=== PATIENT | male | born 1970 | race Caucasian/White ===

== ENCOUNTER 2020-07-30 11:49 | Emergency (ER) | payer OTHER, SELFPAY ==
[2020-07-30 11:56] VITALS: BP 187/89; PULSE 78; RESP 20; TEMP 36.5; O2SAT 100
--- NOTE | 2020-07-30 12:13 | ED.URI ---
HPI - URI/Sore Throat General Chief Complaint: Upper Respiratory Infection Stated Complaint: stuffy nose/drainage/sore throat Time Seen by Provider: 07/30/20 12:02 Source: patient and RN notes reviewed Mode of arrival: ambulatory Limitations: no limitations History of Present Illness HPI Narrative: 49 year old male who presents to [facility] with complaints of 2 week duration of sinus congestion with pressure to his face especially to his right maxillary region with pressure also to his right ear, and sore throat. Patient states that his son tested positive to Covid and he was also tested last week with his results being negative. Patient states that he also has some coughing with expectoration of greenish mucous. Patient denies any fevers, chills or sweats, denies any shortness of breath, chest pressure or any palpitations. He states that he has been taking OTC sinus medication with no relief of his symptoms. MD elicited complaint: cough, sore throat, rhinorrhea, nasal congestion and sinus pain Pertinent past history: sinusitis and other (tobacco abuse) Onset (ago): week(s) (2) Consistency: progressively worsening Severity: moderate Pain scale (0-10): 5 Description of mucous: clear and green Able to tolerate fluids by mouth: Yes Exacerbating factors: leaning forward Relieving factors: nothing Associated symptoms: rhinorrhea, nasal congestion, sore throat, cough, ear pain (right ear pressure) and other (sinus pressure) Treatments prior to arrival: other (sinus medication) Related Data Allergies Allergy/AdvReac Type Severity Reaction Status Date / Time propoxyphene Allergy Mild Other Verified 07/30/20 12:02 Review of Systems Review of Systems: Narrative: CONSTITUTIONAL: Denies fever, chills, or sweats. EYES: Denies visual changes, redness, or discharge. ENT: positive rhinorrhea,sinus congestion, sore throat, right ear pressure CARDIOVASCULAR: Denies chest pain, palpitations, or edema. RESPIRATORY: Occasional cough denies dyspnea. GASTROINTESTINAL: Denies abdominal pain, nausea, vomiting, or diarrhea. GENITOURINARY: Denies dysuria or hematuria. SKIN: Denies rash or itching. MUSCULOSKELETAL: Denies back pain, joint pain, or myalgia. NEUROLOGIC: Denies headache, numbness, or weakness. PSYCHIATRIC: Denies anxiety or depression. All systems reviewed & are unremarkable except as noted in HPI and below PMFSH Past Medical History Medical History (Updated 07/31/20 @ 19:08 by Lexy Carrera NP) C. difficile enteritis Sinusitis Surgical History Surgical History (Updated 07/30/20 @ 18:06 by Lexy Carrera NP) History of arthroscopy of left shoulder History of left nephrectomy History of right knee surgery History of tonsillectomy Hx of cholecystectomy Family History Family History (Updated 07/31/20 @ 19:10 by Lexy Carrera NP) Mother Cancer Social History Social History (Updated 07/31/20 @ 19:10 by Lexy Carrera NP) Smoking packs per day: 1 Smoking cigarettes per day: 20.0 Smoking status: Current every day smoker Alcohol intake: current Alcohol use details: social Substance use: never Living arrangements: with family Gender identity (if verbalized by the patient): Male Comments At time of signature, agree with nursing past medical, surgical, social and family history. There is no relevant family history pertinent to the presenting complaint Exam Narrative: Exam Narrative: GENERAL: Well-appearing, well-nourished, and in no acute distress. HEAD: Normocephalic, atraumatic. EYES: PERRLA and EOMI. ENT: Nares red and turbinates swollen, clear to greenish rhinorrhea no epistaxis, facial sinus pressure right greater than left. Mucous membranes moist.Right TM dull light reflex with no redness to TM or canal, Left Rm normal with good light reflex. throat red with post nasal drainage noted, no lesions noted previous tonsillectomy. NECK: Supple.no lymphadenopathy CHEST: Clear to auscultation.
[2020-07-30 12:21] VITALS: BP 162/88
== END 2020-07-30 12:25 | disposition home or self-care (01) ==
PROVIDERS: Emergency Provider Registered Nurse
DX: J01.90 Acute sinusitis, unspecified (principal); F17.210 Nicotine dependence, cigarettes, uncomplicated; Z90.5 Acquired absence of kidney; Z86.19 Personal history of other infectious and parasitic diseases
CPT/HCPCS: 99203; G0463

== ENCOUNTER 2021-01-17 16:02 | Emergency (ER) | payer OTHER, SELFPAY ==
[2021-01-17 16:11] VITALS: BP 144/86; PULSE 89; RESP 16; TEMP 37.4; O2SAT 100
--- NOTE | 2021-01-17 16:32 | ED.GENADULT ---
HPI - General Adult General Chief complaint: Weakness Stated complaint: Fatigue Time Seen by Provider: 01/17/21 16:32 Source: patient and RN notes reviewed Mode of arrival: ambulatory Limitations: no limitations History of Present Illness HPI narrative: 50-year-old male presents with complaints of being fatigue and decrease appetite for the past 2 days. Aston reports increasing fatigue after having a day of nausea, vomiting, and decrease po intake. Aston reports working long hours at [employer] due t short staff. No treatment. Denies URI symptoms. Denies ill exposures. Denies abdominal pain, constipation, and diarrhea. Tolerating p.o. intake well since the day of nausea and vomiting. Denies sore throat. Denies trauma to head, syncopal episodes, altered vision, altered speech, confusion, or seizure activity. Denies headache, numbness or tingling in extremities. Denies chest pain or dyspnea. Denies sweats, fever, or chills. Remains active. The patient reports he have not been diagnosed with COVID-19. The patient reports he is not waiting for the results of a COVID-19 lab test. The patient reports he do not have a new or worsening cough. The patient reports he do not have any rhinorrhea, congestion, loss of taste or smell. Denies recent traveling. Denies concerns for COVID-19 or exposures been home with limited outdoor exposure except for essential household needs, work, and return home. At this time, patient is not suspected of having COVID-19. Some parts of this dictation were generated by voice recognition software and may contain typographical and/or grammatical inaccuracies. Related Data Allergies Allergy/AdvReac Type Severity Reaction Status Date / Time propoxyphene Allergy Mild Other Verified 01/17/21 16:10 Review of Systems Review of Systems: Narrative: CONSTITUTIONAL: Denies fever, chills, sweats. Complains of fatigue. EYES: Denies visual changes, redness, discharge. ENT: Denies rhinorrhea, congestion, sore throat, otalgia. CARDIOVASCULAR: Denies chest pain, palpitations, edema. RESPIRATORY: Denies dyspnea, wheezing, cough. GASTROINTESTINAL: Denies abdominal pain, diarrhea. Complains of nausea, vomiting-Resolved. GENITOURINARY: Denies dysuria, hematuria, abnormal discharge. SKIN: Denies lesions, itching, drainage. MUSCULOSKELETAL: Denies acute back pain, joint pain, or myalgia. NEUROLOGIC: Denies numbness or focal weakness. PSYCHIATRIC: Denies anxiety or depression. All systems reviewed & are unremarkable except as noted in HPI and below. [facility] Past Medical History Medical History C. difficile enteritis Sinusitis Surgical History Surgical History History of arthroscopy of left shoulder History of left nephrectomy History of right knee surgery History of tonsillectomy Hx of cholecystectomy Family History Family History (Updated 01/24/21 @ 23:47 by CHERELLE Shin) Mother , Lymphoma Cancer Father Hypertension Social History Social History (Updated 01/24/21 @ 23:49 by CHERELLE Shin) Smoking packs per day: 1 Smoking cigarettes per day: 20.0 Years smoked: 30 Smoking pack-years: 30.00 Smoking status: Current every day smoker Tobacco type: cigarettes Second hand tobacco smoke exposure: No Alcohol intake: current Substance use: never Substance use type: does not use Living arrangements: with family Occupation/Education: occupation Gender identity (if verbalized by the patient): Male Comments At time of signature, agree with nurse past medical, surgical, social, and family history. There is no relevant family history pertinent to the presenting complaint. Exam Narrative: Exam Narrative: GENERAL: This is a well-nourished, well-developed patient, in no apparent distress. Talks in full sentences and ambulates with steady
== END 2021-01-17 17:27 | disposition home or self-care (01) ==
PROVIDERS: Emergency Provider Nurse Practitioner Family
DX: K52.9 Noninfective gastroenteritis and colitis, unspecified (principal); R53.83 Other fatigue; F17.210 Nicotine dependence, cigarettes, uncomplicated; Z86.19 Personal history of other infectious and parasitic diseases; Z90.5 Acquired absence of kidney
CPT/HCPCS: 81003; 99213; G0463

== ENCOUNTER 2022-05-02 19:08 | Emergency (ER) | payer OTHER, SELFPAY ==
[2022-05-02 19:15] VITALS: BP 133/81; PULSE 89; RESP 18; TEMP 36.7; O2SAT 100
--- NOTE | 2022-05-02 19:24 | ED.BACK ---
HPI - Back Pain/Injury General Chief Complaint: Back Pain/Injury Stated Complaint: Low Back Pain Time Seen by Provider: 05/02/22 19:24 Source: patient and RN notes reviewed Mode of arrival: ambulatory Limitations: no limitations History of Present Illness HPI Narrative: 51-year-old male presents to the [facility] with complaints of left lower back pain for a couple of days. Has been taking ibuprofen with minimal relief. Patient denies any abdominal pain or chest pain. No saddle anesthesia. No numbness or tingling in extremities. No saddle anesthesia. Walks with a normal gait. Related Data Allergies Allergy/AdvReac Type Severity Reaction Status Date / Time propoxyphene Allergy Mild Other Verified 05/02/22 19:28 Review of Systems Review of Systems: All systems reviewed & are unremarkable except as noted in HPI and below Constitutional: Constitutional: Reports no additional constitutional complaints, Denies chills and Denies fever(s) Eyes: Eyes: Reports no additional eye complaints ENT: Reports system reviewed and no additional complaints, except as documented Cardiovascular: Cardiovascular: Reports no additional cardiovascular complaints Respiratory: Respiratory: Reports no additional respiratory complaints Gastrointestinal: Gastrointestinal: Reports no additional gastrointestinal complaints Musculoskeletal: Musculoskeletal: Reports as per HPI and Reports back pain (Left lower) Integumentary/Breasts: Skin/Breast: Reports system reviewed and no additional complaints, except as docu Neurologic: Reports system reviewed and no additional complaints, except as documented Psychiatric: Psychiatric: Reports no additional psychiatric complaints Allergic/Immunologic: Allergic/Immunologic: Reports no additional allergic/immunologic complaints [facility] Past Medical History Medical History C. difficile enteritis Sinusitis Surgical History Surgical History History of arthroscopy of left shoulder History of left nephrectomy History of right knee surgery History of tonsillectomy Hx of cholecystectomy Family History Family History Mother , Lymphoma Cancer Father Hypertension Social History Social History Smoking packs per day: 1 Smoking cigarettes per day: 20.0 Years smoked: 30 Smoking pack-years: 30.00 Smoking status: Current every day smoker Tobacco type: cigarettes Second hand tobacco smoke exposure: No Alcohol intake: current Alcohol use details: social Substance use: never Substance use type: does not use Gender identity (if verbalized by the patient): Male Comments At the time of my signature, I reviewed and agree with the nursing past medical, surgical, social, and family history. There is no relevant family history pertinent to the patient complaint. Exam Const: General: healthy appearing, no acute distress and alert Nutritional Appearance: well nourished Orientation/consciousness: patient oriented x3 Limitations: no limitations HENMT: Head: normal to inspection Ears: external ears normal Eyes: General: appearance normal, both eyes and all related structures Pupils: Equal, round and reactive pupils present Neck: Neck: normal visual inspection, no lymphadenopathy and no meningeal signs Chest: Chest palpation & inspection: normal inspection of the chest Resp: Effort & Inspection: normal respiratory effort and no use of accessory muscles Auscultation: clear to auscultation bilaterally, no crackles, no rales, no rhonchi and no wheezes Cardio: Rate: regular rate Rhythm: regular rhythm GI: GI Palp: Yes Soft to palpation and No Tenderness to palpation present (GI) Back/Spine/Pelvis: Back: no CVA tenderness, No erythema and back tenderness (Lef
[2022-05-02] MEDS: KETOROLAC (*BKC) 60 MG/2 ML VIAL IM (19:35)
== END 2022-05-02 19:55 | disposition home or self-care (01) ==
PROVIDERS: Emergency Provider Nurse Practitioner
DX: S39.012A Strain of muscle, fascia and tendon of lower back, initial encounter (principal); X58.XXXA Exposure to other specified factors, initial encounter; Z86.19 Personal history of other infectious and parasitic diseases; Z90.5 Acquired absence of kidney; F17.210 Nicotine dependence, cigarettes, uncomplicated
CPT/HCPCS: 96372; 99213; G0463; J1885

== ENCOUNTER 2022-07-01 09:00 | Outpatient (CLI) | payer OTHER, SELFPAY ==
[2022-07-01 19:49] LABS: Basophils Absolute Auto 0.1 K/mm3 (0.0-0.1); Basophils Percent Auto 0.4 % (0.2-1.2); Eosinophils Absolute Auto 0.2 K/mm3 (0-0.3); Eosinophils Percent Auto 1.9 % (0-4.4); Hematocrit 46.3 % (42.0-52.0); Immature Granulocyte Absolute 0.03 K/mm3 (0.00-0.031); Immature Granulocyte Percent A 0.2 % (0-0.5); Lymphocytes Absolute Auto 2.47 K/mm3 (0.9-3.2); Lymphocytes Percent Auto 19.7 % (18.3-44.2); Mean Corpuscular HGB Conc 34.6 g/dl (32-36); Mean Corpuscular Hemoglobin 34.2 pg (26-34); Mean Corpuscular Volume 98.9 fl (80-100); Mean Platelet Volume 9.8 fl (7.4-10.4); Monocytes Absolute Auto 0.4 K/mm3 (0.1-0.6); Monocytes Percent Auto 3.3 % (2.6-8.5); Neutrophils Absolute Auto 9.3 K/mm3 (1.3-6.7); Neutrophils Percent Auto 74.5 % (45.5-73.1); Platelet Count Result 183 k/mm3 (150-375); Red Blood Count 4.68 M/mm3 (4.6-6.20); Red Cell Distribution Width 12.3 % (11.5-14.5); White Blood Count 12.5 K/mm3 (4.5-10.0)
[2022-07-01 19:58] LABS: Alanine Aminotransferase 36 U/L (6-50); Albumin Level 4.6 g/dL (3.5-5.1); Alkaline Phosphatase 70 U/L (38-126); Anion Gap 11 mmol/L (8-16); Aspartate Amino Transferase 49 U/L (17-59); Bilirubin,Total 0.3 mg/dL (0.2-1.3); Blood Urea Nitrogen 14 mg/dL (9-20); Calcium 9.4 mg/dL (8.4-10.2); Carbon Dioxide 31 mmol/L (22-30); Chloride 100 mmol/L (98-107); Cholesterol 185 mg/dL (0-200); Estimated Glomerular Filt Rate > 60; Glucose 101 mg/dL (65-110); HDL Direct 38 mg/dL; Potassium 4.5 mmol/L (3.4-5.0); Sodium 142 mmol/L (137-145); Triglycerides 214 mg/dL (<150)
[2022-07-01 20:09] LABS: LDL Cholesterol Direct 111 mg/dL
== END 2022-07-01 09:01 | disposition home or self-care (01) ==
LOC: ANHBWCLAB 09:02
PROVIDERS: PCP Family Medicine; Visit Provider Family Medicine
DX: Z00.00 Encounter for general adult medical examination without abnormal findings (principal)
CPT/HCPCS: 36415; 80053; 80061; 85025

== ENCOUNTER 2023-04-01 16:22 | Outpatient (CLI) | payer OTHER, SELFPAY ==
--- NOTE | ~2023-04-01 | XR_ITS ---
XR thoracic spine 2V DATE: 04/01/2023 16:36 INDICATION: Back pain, sciatica TECHNIQUE: AP, lateral, swimmer views COMPARISON: None FINDINGS: There is mild anterolisthesis of C4-5 and severe degenerative disc disease at C5-C6, modera tely prominent degenerative disease at C6-7. Slight thoracic levoscoliosis. No fracture or dislocation of the thoracic spine. The thoracic pedicles are intact. No paraspinal sof t tissue thickening. There is minimal degenerative spurring of the thoracic spine. IMPRESSION: Minimal degenerative spurring of the thoracic spine Slight thoracic levoscoliosis. Reviewed, dictated and finalized at location B.
--- NOTE | ~2023-04-01 | XR_ITS ---
XR lumbar spine 2-3V DATE: 04/01/2023 16:36 INDICATION: Mid and low back pain, sciatica TECHNIQUE: AP, lateral, coned lateral lumbosacral views COMPARISON: None FINDINGS: There is grade 2 anterolisthesis and moderately severe degenerative disease at L5-S1. Moderately severe degenerative disease and retrolisthesis is noted at L3-4 and L4-5. Moderate degenerative disc disease at L2-3. No fracture or bone destruction is evident. The included lower thoracic and lumbar pedicles are intac t. The sacroiliac joints are intact. Surgical clips, right upper quadrant, consistent with cholecystectomy. Pubic sutures and clips overli e the left abdomen. Multiple surgical clips overlie the left pelvis. IMPRESSION: Grade 2 anterolisthesis at L5-S1 Multilevel degenerative disc disease, most pronounced at L3-4 through L5-S1, with mild retrolisthesis at L3-4 and L4-5 Reviewed, dictated and finalized at location B. IMPRESSION: Grade 2 anterolisthesis at L5-S1 Multilevel degenerative disc disease, most pronounced at L3-4 through L5-S1, wi th mild retrolisthesis at L3-4 and L4-5
== END 2023-04-01 16:23 | disposition home or self-care (01) ==
LOC: ANHBWCIMG 16:23
PROVIDERS: PCP Family Medicine; Visit Provider Nurse Practitioner Adult Health
DX: M54.30 Sciatica, unspecified side (principal); M51.37 Other intervertebral disc degeneration, lumbosacral region; M41.9 Scoliosis, unspecified
CPT/HCPCS: 72070; 72100

== ENCOUNTER 2023-04-15 08:02 | Emergency (ER) | payer OTHER, SELFPAY ==
--- NOTE | 2023-04-15 08:06 | ED.BACK ---
HPI - Back Pain/Injury General Chief Complaint: Back Pain/Injury Stated Complaint: Lower Back/Left Leg Pain Time Seen by Provider: 04/15/23 08:16 Source: patient and RN notes reviewed Mode of arrival: ambulatory Limitations: no limitations History of Present Illness HPI Narrative: 52 year old male presents with flare up of low back pain. He was seen my his primary care doctor about 2 weeks ago and had spine x-rays that show degenerative disc disease. He is waiting on an order for an MRI. He reports he took Medrol Dosepak which helped, he has a prescription for cyclobenzaprine which he says does not help. He reports this morning he stepped down from his truck at work and stepped wrong and had sudden return of pain is left low back going down to his left knee. He reports he can find a position of comfort while sitting and extending the leg. He reports walking and lying down makes the pain worse. He denies loss of bowel or bladder function, perianal anesthesia, fever, abdominal pain. He has not taken any medication for his symptoms today. MD elicited complaint: back pain Related Data Allergies Allergy/AdvReac Type Severity Reaction Status Date / Time propoxyphene Allergy Mild Other Verified 04/15/23 08:20 Review of Systems Review of Systems: CONSTITUTIONAL: Denies malaise, chills, sweats, or fever. CARDIOVASCULAR: Denies chest pain, palpitations, or edema. RESPIRATORY: Denies cough or dyspnea. GASTROINTESTINAL: Denies abdominal pain, nausea, vomiting, diarrhea, loss of bowel function GENITOURINARY: Denies dysuria, hematuria, frequency, loss of bladder function. SKIN: Denies rash or itching. MUSCULOSKELETAL: Reports low back pain radiating to the left leg NEUROLOGIC: Denies numbness, weakness, or headache. All systems reviewed & are unremarkable except as noted in HPI and below PMFSH Past Medical History Medical History (Updated 04/15/23 @ 08:27 by Belen Hyman NP) C. difficile enteritis Sinusitis Surgical History Surgical History History of arthroscopy of left shoulder History of left nephrectomy History of right knee surgery History of tonsillectomy Hx of cholecystectomy Family History Family History Mother , Lymphoma Cancer Father Hypertension Social History Social History (Updated 04/01/23 @ 16:04 by Shanon Snyder MA) Smoking packs per day: 1 Smoking cigarettes per day: 20.0 Years smoked: 30 Smoking pack-years: 30.00 Smoking status: Current every day smoker Tobacco type: cigarettes Second hand tobacco smoke exposure: No Alcohol intake: current Alcohol use details: social Substance use: never Substance use type: does not use Lack of Transportation: No Lack of Food: Never True Current Housing: I Have Housing Concerned About Future Housing: No Difficulty Paying Gas/Electric Bills: No Difficulty Paying for Meds: No Currently Unemployed: No Education: Trade/Vocational Certificate Difficulty w/ Childcare or Family Care: No Living arrangements: with family Occupation/Education: occupation Gender identity (if verbalized by the patient): Male Comments At time of signature, agree with nursing past medical, surgical, social and family history. There is no relevant family history pertinent to the presenting complaint Exam Narrative: GENERAL: Well-appearing, well-nourished, and in no acute distress. HEAD: Normocephalic, atraumatic. EYES: PERRLA and EOMI. NECK: Supple. No lymphadenopathy. CHEST: Clear to auscultation. No respiratory distress. HEART: Regular rate and rhythm. Distal pulses palpable and equal, cap refill <3 seconds ABDOMEN: Soft, nontender, nondistended, normal active bowel sounds, no palpable or pulsatile masses. No CVA tenderness MUSCULOSKELETAL: Normal range of motion and strength in all extremities; 5/5 strength
[2023-04-15 08:08] VITALS: BP 159/87; PULSE 81; RESP 18; TEMP 36.6; O2SAT 100
== END 2023-04-15 08:30 | disposition home or self-care (01) ==
PROVIDERS: Emergency Provider Nurse Practitioner; PCP Family Medicine
DX: M54.50 Low back pain, unspecified (principal); F17.210 Nicotine dependence, cigarettes, uncomplicated; Z90.5 Acquired absence of kidney
CPT/HCPCS: 99213; G0463

== ENCOUNTER 2023-04-24 08:41 | Outpatient (CLI) | payer OTHER, SELFPAY ==
--- NOTE | ~2023-04-24 | MR_ITS ---
EXAMINATION: MR thoracic spine wo con DATE: 04/24/2023 10:07 INDICATION: Scoliosis, unspecified. TECHNIQUE: Magnetic resonance imaging (MRI) of the thoracic spine was performed without intravenous c ontrast. COMPARISON: Thoracic spine radiographs 04/01/2023 FINDINGS: Bone alignment is normal in thoracic spine. There are Schmorl's nodes multiple levels in lo wer thoracic spine. Intervertebral disc heights are normal. At T7-T8, there is a left central protrus ion with mild central canal stenosis. There is multilevel mild facet joint osteoarthritis. On the rig ht, there is moderate facet joint osteoarthritis at T3-T4. On the right, there is mild neural foramin al stenosis at T1-T2. The spinal cord signal intensity is normal. IMPRESSION: 1. Mild thoracic spondylosis. Reviewed, dictated and finalized at location A.
--- NOTE | ~2023-04-24 | MR_ITS ---
EXAMINATION: MR lumbar spine wo con DATE: 04/24/2023 10:07 INDICATION: Lumbar spondylolisthesis. TECHNIQUE: Magnetic resonance imaging (MRI) of the lumbar spine was performed without intravenous con trast. COMPARISON: Lumbar spine radiographs 04/01/2023 FINDINGS: There is 8 degrees levocurvature of lumbar spine. There are chronic bilateral L5 pars defec ts. There is 3 mm retrolisthesis of L2 on L3, 7 mm retrolisthesis of L3 on L4, 9 mm retrolisthesis of L4 on L5, and 14 mm anterolisthesis of L5 on S1. There is 1/5 chronic height loss of L5 vertebral brayan dy posteriorly. There is mildly decreased disc height at L2-L3, severely decreased disc height at L3- L4, moderately decreased disc height at L4-L5, and severely decreased disc height at L5-S1. The dista l spinal cord signal intensity is normal. The conus medullaris is at L1-L2. The following disc levels are specifically discussed: L1-L2: There is a left central extrusion. There is mild bilateral facet joint osteoarthritis. There i s mild bilateral neural foraminal stenosis. There is mild central canal stenosis. L2-L3: The disc is bulging. There is mild bilateral facet joint osteoarthritis. There is mild bilater al neural foraminal stenosis. There is mild central canal stenosis. L3-L4: The disc is bulging with superimposed right subarticular zone extrusion. There is mild right a nd moderate left facet joint osteoarthritis. There is moderate right and mild left neural foraminal s tenosis. There is mild central canal stenosis. There is moderate stenosis of right lateral recess. L4-L5: The disc is bulging and has an annular fissure. There is moderate bilateral facet joint osteoa rthritis. There is moderate bilateral neural foraminal stenosis. There is mild central canal stenosis . L5-S1: The disc is bulging. There is mild bilateral facet joint osteoarthritis. There is moderate ry ateral neural foraminal stenosis. There is no central canal stenosis. IMPRESSION: 1. Severe lumbar spondylosis. 2. Chronic bilateral L5 pars defects with grade 2 anterolisthesis of L5 on S1. Reviewed, dictated and finalized at location A.
== END 2023-04-24 08:42 ==
LOC: GOSHIMG 08:43
PROVIDERS: PCP Family Medicine; Visit Provider Nurse Practitioner Adult Health
DX: M43.16 Spondylolisthesis, lumbar region (principal); M41.9 Scoliosis, unspecified; M47.894 Other spondylosis, thoracic region; M47.896 Other spondylosis, lumbar region
CPT/HCPCS: 72146; 72148

== ENCOUNTER 2023-06-15 09:06 | Outpatient (CLI) | payer OTHER, SELFPAY ==
--- NOTE | ~2023-06-15 | XR_ITS ---
EXAMINATION: XR lumbar spine min 4V DATE: 06/15/2023 09:28 INDICATION: Spondylolisthesis, site unspecified. TECHNIQUE: 4 views of lumbar spine including flexion and extension views were obtained. COMPARISON: Lumbar spine radiographs 04/01/2023, MRI 04/24/2023 FINDINGS: There are chronic bilateral L5 pars defects. There is 12 mm anterolisthesis of L5 on S1, 8 mm retrolisthesis of L4 on L5, and 5 mm anterolisthesis of L3 on L4. There is no abnormal motion with flexion or extension. There is mild chronic height loss of L5 vertebral body posteriorly. There is m ildly decreased disc height at L2-L3, severely decreased disc height at L3-L4, moderately decreased d isc height at L4-L5, and severely decreased disc height at L5-S1. There is multilevel mild to moderat e facet joint osteoarthritis. There are surgical clips in the abdomen. IMPRESSION: 1. Severe lumbar spondylosis. 2. Chronic bilateral L5 pars defects with grade 2 anterolisthesis of L5 on S1. Reviewed, dictated and finalized at location A.
== END 2023-06-15 09:07 | disposition home or self-care (01) ==
PROVIDERS: PCP Nurse Practitioner Adult Health; Visit Provider Neurological Surgery
DX: M43.06 Spondylolysis, lumbar region (principal); M53.86 Other specified dorsopathies, lumbar region
CPT/HCPCS: 72110

== ENCOUNTER 2025-03-17 08:05 | Emergency (ER) | payer OTHER, SELFPAY ==
--- OUTSIDE RECORDS SUMMARY | 2025-03-17 08:07 | XMS_ITS | Clinical Summary ---
Author Organization [facility] Address [facility] [place] [address] Care Team Providers Care Accounts Specialist Name Role Phone Unavailable Primary Care Provider Unavailabl e Allergies Active Allergy Reactions Criticality Noted Date Comments Propoxyphene Itching Medications methylPREDNISolo ne, BETTY, 4 MG tabletIndication s:Fever, unspecified fever cause,Sore throat,Elevated blood pressure reading,Upper respiratory infection, viral 6 TABLETS ON DAY ONE, 5 TABLETS DAY TWO, 4 TABLETS DAY THREE, 3 TABLETS DAY FOUR, 2 TABLETS DAY FIVE, AND 1 TABLET DAY SIX 1 each 12/07/2019 Active ipratropium 0.06 % nasal sprayIndications :Fever, unspecified fever cause,Sore throat,Elevated blood pressure reading,Upper respiratory infection, viral 2 sprays by Nasal route 4 (four) times daily. 15 mL 3 12/07/2019 Active Active Problems Problem Noted Date Diagnosed Date Status post laparoscopic cholecystectomy 019 Hematuria 08/04/2016 Calculus in diverticulum of bladder 04/28/2016 Overview (05/12/2019): Overview: Description: 09/16/2016 cystolitholapaxy of stone burden 2 cm, bilateral retrograde pyelography, left ureteroscopy, left ureteral foreign body extraction, and excision of ureterocele. Enlarged prostate 04/28/2016 Flank pain 04/28/2016 Resolved Problems Problem Noted Date Diagnosed Date Resolved Date Cholelithiases 05/13/2019 05/20/2019 Cholelithiasis 05/12/2019 05/20/2019 Calculus of gallbladder with biliary obstruction but without cholecystitis 05/11/2019 Overview (05/12/2019): Overview: Added automatically from request for surgery [id number] Family History Medical History Relation Comments Diabetes Maternal Grandfather Cancer Mother lymphoma Relation Status Comments Maternal Grandfather Mother Social History Tobacco Use Types Packs/Day Years Used Date Smoking Tobacco: Every Day Cigarettes Smokeless Tobacco: Never Tobacco Cessation:Counseling Given: Yes Alcohol Use Standard Drinks/Week Comments No 0 (1 standard drink = 0.6 oz pur e alcohol) AUDIT-C Answer Date Recorded Frequency of Alcohol Consumption Never 05/12/2019 Average Number of Drinks Not on file 019 Frequency of Binge Drinking Not on file 01/2019 Sex and Gender Information Value Date Recorded Sex Assigned at Not on file Legal Sex Male 10:40 PM CDT Gender Identity Not on file Sexual Orientation Not on file Last Filed Vital Signs Vital Sign Reading Time Taken Comments Blood Pressure 167/97 12/07/2019 10:40 AM CDT Pulse 86 12/07/2019 10:40 AM CDT Temperature 36.9 C (98.4 F) 12/07/2019 10:40 AM CDT Respiratory Rate 18 12/07/2019 10:40 AM CDT Oxygen Saturation 97% 12/07/2019 10:40 AM CDT Inhaled Oxygen Concentration - - Weight 95.3 kg (210 lb) 12/07/2019 10:40 AM CDT Height 190.5 cm (6' 3) 07/27/2019 4:15 PM CHANNEL MARKETING COORDINATOR Body Mass Index 26.25 07/27/2019 4:15 PM CHANNEL MARKETING COORDINATOR Plan of Treatment Health Maintenance Due Date Last Done Comments Colorectal Cancer Screening Colonoscopy (10 Years) 1972 Annual Physical 1975 Hepatitis C 1990 DTaP, Tdap and Td Vaccines ( 1 - Tdap) 1991 Hepatitis B Vaccines (1 of 3 - 19+ 3-dose series) 1991 Pneumococcal Vaccine: 50+ Ye ars (1 of 2 - PCV) 1991 Zoster Vaccines (1 of 2) 2022 COVID-19 Vaccine (2023-2 5 season) 2024 Meningococcal B Vaccine Aged Out No l onger eligible based on patient's age to complete this topic Meningococcal Vaccine Aged Out No wesly jose luis eligible based on patient's age to complete this topic RSV Immunizations Under 20 Months Aged Out No longer eligible based on patient's age to complete this topic Insurance [facility] Advance Directives * Full Code (Latest Code Status on File) Date Activated Date Inactivated Comments 05/13/2019 10:46 AM 05/14/2019 6:07 PM
--- OUTSIDE RECORDS SUMMARY | 2025-03-17 08:07 | XMS_ITS | Continuity of Care Document ---
Author Organization [facility] Address [address] [address] Phone Care Team Providers Care Correctional Treatment Specialist Name Role Phone Garcia Menchaca MD Unavailable Unavailable Advance Directives Directive Yes / No Effective Date File Name No Information Encounters Encounter Description Practice Location Reason(s) For Visit Diagnoses Date Provider Providers Copied on Encounter [facility], [address] [address], [place], [place], [id number], [place] tel:[phone] [facility] ([place]) No Information Nikolai Zelaya. [address], [id number], [place]. tel:[phone] Family History Family Member Type Diagnosis Age At Onset No Information Payers Payer name Insurance type Covered republican ID Authoriza tion(s) [facility] [id number] Social History Type Description Quantity Date Captured Comments Sex Male Smoking Status No Information Chief Complaint And Reason For Visit No Information Reason For Referral Reason For Referral No Information History Of Present Illness Encounter Date Complaint History Of Prese nt Illness No Information Functional Status Date Functional Assessmen t No Information Instructions Date Instruction Additional Infor mation No Information Assessments Type Assessment Date No Information Patient Care Teams Name Effective Dates (start - stop) Status Members No Information
--- OUTSIDE RECORDS SUMMARY | 2025-03-17 08:07 | XMS_ITS | Encounter Summary ---
Author Organization [facility] Address [address] [place] [address] Care Team Providers Care Dish Stacker Name Role Phone Letty Ennis WAISTBAND SETTER Primary Care Provider Rocio Mg WAISTBAND SETTER Primary Care Provider Marvel ailable Reason for Visit * Reason Onset Date Comments Hospital Follow Up 05/15/2019 Encounter Details Date Type Department Care Team (Late st Contact Info) Description 05/15/2019 Hospital Follow-up Call [facility] Med/Surg [address] [place] [address] Ashtyn Fletcher RN Hospital Follow Up Social History Tobacco Use Types Packs/Day Years Used Date Smoking Tobacco: Every Day Cigarettes Smokeless Tobacco: Never Alcohol Use Standard Drinks/Week Comments No 0 [...] on file Sexual Orientation Not on file documented as of this encounter Functional Status * RETIRED Are you deaf or do you have serious difficulty hearing Answer Date of Assessment Author Status No 05/14/2019 12:13 PM CDT Acti ve * RETIRED Are you blind or do you have serious difficulty seeing, even when wearing glasses? Answer Date of Assessment Author Status No 05/14/2019 12:13 PM CDT Acti ve * Do you have serious difficulty walking or climbing stairs? Answer Date of Assessment Author Status No 05/14/2019 12:13 PM CDT Katty Tamayo RN Active * Do you have difficulty dressing or bathing? Answer Date of Assessment Author Status No 05/14/2019 12:13 PM Katty Villalobos RN Active * Because of a physical, mental, or emotional condition, do you have difficulty doing errands alone such as visiting a doctor's office or shopping? Answer Date of Assessment Author Status No 05/14/2019 12:13 PM Katty Villalobos RN Active documented as of this encounter Mental Status * Because of a physical, mental, or emotional condition, do you have serious difficulty concentrating, remembering, or making decisions? Answer Entry Date Author Status No 05/14/2019 12:13 PM Katty Villalobos RN Active documented in this encounter Plan of Treatment Not on file documented as of this encounter Visit Diagnoses Not on filedocumented in this encounter Care Teams Dish Stacker Relationship Specialty Start Date End Date Letty Ennis NP PCP - General Nurse Practitioner Family 05/12/19 05/10/20 Rocio Thorne NP PCP - General NURSE PRACTITIONER 05/11/20 10/07/21 documented as of this encounter
--- OUTSIDE RECORDS SUMMARY | 2025-03-17 08:09 | XMS_ITS | Continuity of Care Document ---
Author Organization [facility] Address [address] [address] Phone Care Team Providers Care Car Cleaning Supervisor Name Role Phone Garcia Menchaca MD Unavailable Unavailable Advance Directives Directive Yes / No Effective Date File Name No Information Encounters Encounter Description Practice Location Reason(s) For Visit Diagnoses Date Provider Providers Copied on Encounter [facility], [address] [address], [place], [place], [id number], [place] tel:[phone] [facility] ([place]) No Information Nikolai Zelaya. [address], [id number], [place]. tel:[phone] Family History Family Member Type Diagnosis Age At Onset No Information Payers Payer name Insurance type Covered green party ID Authoriza tion(s) [facility] [id number] Social History Type Description Quantity Date Captured [...]
[2025-03-17 08:14] VITALS: BP 166/97; PULSE 79; RESP 16; TEMP 36.8; O2SAT 100
[2025-03-17 08:21] LABS: EDUAAPPEAR Clear; EDUABILI Negative (Negative); EDUABLOOD Negative (Negative); EDUACOLOR1 Light/Pale; EDUAGLUCOSE Negative (Negative); EDUAKETONE Negative (Negative); EDUALEUKO Negative (Negative); EDUANITRATE Negative (Negative); EDUAPH 6.0; EDUAPROTEIN Negative (Negative); EDUASPGRAVITY 1.005; EDUAUROBILI 0.2
--- NOTE | 2025-03-17 08:29 | ED_ITS ---
HPI - Female Genitourinary General Chief complaint: Urogenital-Male Stated complaint: Urinary Problem Time Seen by Provider: 03/17/25 08:15 Source: patient and RN notes reviewed Mode of arrival: ambulatory Limitations: no limitations History of Present Illness HPI Narrative: 54-year-old male presents to [facility] complaining of urinary symptoms for 3 days. Patient reports having dysuria, increased frequency, suprapubic pressure. Patient denies any fevers, abdominal pain, body aches, chills, nausea, vomiting, diarrhea, flank pain, or blood his urine. Patient denies any penile discharge or any concerns for STDs. Patient has not taken anything [id number] for symptoms. Patient states he has a history of having 1 kidney. Related Data Home Medications ?Medication ?Instructions ?Recorded ?Confirmed ?Last Taken ?Type meloxicam 15 mg tablet 15 mg PO DAILY 07/08/23 07/24/23 Unknown History Allergies Allergy/AdvReac Type Severity Reaction Status Date / Time propoxyphene Allergy Mild Other Verified 07/24/23 13:02 Review of Systems Review of Systems: CONSTITUTIONAL: Denies fever, chills, body aches, or sweats. EYES: Denies visual changes, redness, or discharge. ENT: Denies rhinorrhea, congestion, sore throat, or otalgia. CARDIOVASCULAR: Denies chest pain, palpitations, or edema. RESPIRATORY: Denies cough or dyspnea. GASTROINTESTINAL: Denies abdominal pain, nausea, vomiting, or diarrhea. GENITOURINARY: Positive for dysuria, increased frequency, suprapubic pressure. Negative for hematuria or penile discharge. SKIN: Denies rash or itching. MUSCULOSKELETAL: Denies back pain, joint pain, or myalgia. NEUROLOGIC: Denies headache, numbness, or weakness. PSYCHIATRIC: Denies anxiety or depression. All other systems reviewed are negative, except as documented in HPI. [facility] Past Medical History Medical History BMI 27.0-27.9,adult C. difficile enteritis Sinusitis Surgical History Surgical History History of right knee surgery Hx of cholecystectomy History of arthroscopy of left shoulder History of left nephrectomy History of tonsillectomy Family History Family History Mother , Lymphoma Cancer Father Hypertension Sibling No problems noted. Social History Social History Smoking packs per day: 1 Smoking cigarettes per day: 20.0 Years smoked: 30 Smoking pack-years: 30.00 Smoking status: Current some day smoker Tobacco type: cigarettes Second hand tobacco smoke exposure: No Alcohol intake: current Alcohol use details: social Substance use: never Substance use type: does not use Lack of Transportation: No Lack of Food: Never True Current Housing: I Have Housing Concerned About Future Housing: No Difficulty Paying Gas/Electric Bills: No Difficulty Paying for Meds: No Currently Unemployed: No Education: Trade/Vocational Certificate Difficulty w/ Childcare or Family Care: No Living arrangements: with family Occupation/Education: occupation 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 There is no relevant family history pertinent to the patient complaint. Exam Narrative: GENERAL: This is a well-nourished, well-developed adult, in no apparent distress. They are non ill-appearing, nontoxic appearing. HEAD: normocephalic, atraumatic. EYES: Sclera clear/white. Vision is grossly intact. Conjunctiva normal bilater ally. Extraocular movements intact. EARS: External ears normal,Hearing grossly intact. NOSE: External nose normal THROAT: Mucous membranes moist NECK: Normal range of motion CARDIOVASCULAR: Regular rate and rhythm. Normal S1-S2. No clicks, gallops, rubs, murmurs. RESPIRATORY: Respiratory rate normal, respiratory effort nonlabored, no respiratory distress. Lung sounds clear to auscultation throughout. Lung sounds equal bilaterally. No adventitious lung sounds. GASTROINTESTINAL: Abdomen soft, flat, mild suprapubic tenderness to palpation, nondistended. Bowel sounds are active. No hepato-splenomegaly, or palpable masses. No guarding or rigidity. No rebound tenderness. SKIN: warm, Dry, intact with no suspicious lesions or rash, good texture and turgor. NEURO: awake, alert, and oriented to person, place and time. There were no obvious focal neurologic abnormalities. EXTREMITIES: No joint tenderness, effusion, or edema noted. BACK: Nontender without deformity. No CVA tenderness. Course Course Emergency Course: Portions of this record may have been created with voice recognition software Level of Care: Express Care Visit Vital Signs Vital signs: Vital Signs Temperature 98.2 F 03/17/25 08:14 Pulse Rate 79 03/17/25 08:14 Respiratory Rate 16 03/17/25 08:14 Blood Pressure 166/97 H 03/17/25 08:14 Pulse Oximetry 100 03/17/25 08:14 Oxygen Delivery Room Air 03/17/25 08:14 Temperature 98.2 F 03/17/25 08:14 Pulse Rate 79 03/17/25 08:14 Respiratory Rate 16 03/17/25 08:14 Blood Pressure 166/97 H 03/17/25 08:14 Pulse Oximetry 100 03/17/25 08:14 Oxygen Delivery Room Air 03/17/25 08:14 MDM - Female Genitourinary MDM Narrative Medical decision making narrative: Urine dipstick is unremarkable no evidence of infection. Urine culture pending. Patient's symptoms are consistent with cystitis. Given patient's symptoms and his history of having 1 kidney, through shared decision making patient elected to go ahead and start antibiotic therapy prior to urine culture result. Will treat patient with cephalexin. Discussed physical exam findings. Advised supportive measures and signs/symptoms to go to the ER. Pt is appropriate for outpt treatment and f/u. Differential Diagnosis Differential diagnosis: Likely urinary tract infection, cystitis and other (Pyelonephritis, prostatitis, sexual transmitted disease.) Lab Data Attestation: I reviewed the patient's lab results. Labs: Lab Results 03/17/25 Range/Units 08:18 POC Urine Color Light/pale POC Urine Clarity Clear POC Urine pH 6.0 POC Ur Specif [place] 1.005 POC Urine Protein Negative (Negative) POC Ur Glucose (UA) Negative (Negative) POC Urine Ketones Negative (Negative) POC Urine Blood Negative (Negative) POC Urine Nitrite Negative (Negative) POC Urine Bilirubin Negative (Negative) POC Urine Urobilinogen 0.2 POC U Leukocyte Esteras Negative (Negative) Discharge Plan Discharge Clinical Impression: Urinary tract infection Qualifiers: Urinary tract infection type: acute cystitis Hematuria presence: without he maturia Qualified Code(s): N30.00 - Acute cystitis without hematuria Patient Disposition: Home Condition: Stable Instructions: Antibiotic Form, Urinary Tract Infection in Men (ED) Additional Instructions: Take the antibiotic as prescribed The urine will be sent of for a culture to identify what type of bacteria is causing your infection. If the culture shows that the antibiotic will not get rid of your infection, you will be notified and a new antibiotic will be called in for you. Increase water intake you will need to follow up with your PCP 3-5 days. Go to the ER for any worsening symptoms, abdominal pain, fevers, nausea, vomiting, or any other concerns Patient Language: German Prescriptions: New cephalexin 500 mg capsule 500 mg PO BID 7 Days Qty: 14 0RF No Action cyclobenzaprine 10 mg tablet 10 mg PO TID PRN (Reason: muscle spasm) Qty: 30 1RF meloxicam 15 mg tablet 15 mg PO DAILY Follow-up/Referrals: Pilar Perdomo APRN [Primary Care Provider] - Time of Disposition: 08:25
== END 2025-03-17 08:33 | disposition home or self-care (01) ==
PROVIDERS: PCP Nurse Practitioner Adult Health
DX: N30.00 Acute cystitis without hematuria (principal); F17.210 Nicotine dependence, cigarettes, uncomplicated; Z90.5 Acquired absence of kidney; Z86.19 Personal history of other infectious and parasitic diseases
CPT/HCPCS: 81003; 87086; 99213; G0463

== ENCOUNTER 2025-03-29 14:35 | Outpatient (CLI) | payer OTHER, SELFPAY ==
--- OUTSIDE RECORDS SUMMARY | 2025-03-29 14:45 | XMS_ITS | Encounter Summary ---
Author Organization [facility] Address [address] [place] [address] Care Team Providers Care Pit Slagman Name Role Phone Letty Ennis SIGN WRITER LETTERER OR PAINTER Primary Care Provider Rocio Mg SIGN WRITER LETTERER OR PAINTER Primary Care Provider Marvel ailable Reason for Visit * Reason Onset Date Comments Hospital Follow Up 05/15/2019 Encounter Details Date Type Department Care Team (Late st Contact Info) Description 05/15/2019 Hospital Follow-up Call [facility] Med/Surg [address] [place] [address] Ashtyn Fletcher RN Hospital Follow [...] on filedocumented in this encounter Care Teams Pit Slagman Relationship Specialty Start Date End Date Letty Ennis NP PCP - General Nurse Practitioner Family 05/12/19 05/10/20 Rocio Thorne NP PCP - General NURSE PRACTITIONER 05/11/20 10/07/21 documented as of this encounter
--- OUTSIDE RECORDS SUMMARY | 2025-03-29 14:45 | XMS_ITS | Clinical Summary ---
Author Organization [facility] Address [facility] [place] [address] Care Team Providers Care Crossbar Frame Wirer Name Role Phone Unavailable Primary Care Provider [...] Overview: Added automatically from request for surgery [id number] Family History Medical History Relation Comments Diabetes [...] 190.5 cm (6' 3) 07/27/2019 4:15 PM SOLID WASTE TRUCK DRIVER Body Mass Index 26.25 07/27/2019 4:15 PM SOLID WASTE TRUCK DRIVER Plan of Treatment Health Maintenance Due Date [...] patient's age to complete this topic Insurance [facility] Advance Directives * Full Code (Latest Code Status on File) Date Activated Date Inactivated Comments 05/13/2019 10:46 AM 05/14/2019 6:07 PM
--- OUTSIDE RECORDS SUMMARY | 2025-03-29 14:45 | XMS_ITS | Continuity of Care Document ---
Author Organization [facility] Address [address] [address] Phone Care Team Providers Care Rehabilitation Aide/Scheduler Name Role Phone Garcia Menchaca MD Unavailable Unavailable Advance Directives Directive Yes / No Effective Date File Name No Information Encounters Encounter Description Practice Location Reason(s) For Visit Diagnoses Date Provider Providers Copied on Encounter [facility], [address] [address], [place], [place], [id number], [place] tel:[phone] [facility] ([place]) No Information Nikolai Zelaya. [address], [id number], [place]. tel:[phone] Family History Family Member Type Diagnosis Age At Onset No Information Payers Payer name Insurance type Covered green party ID Authoriza tion(s) [facility] [id number] Social History Type Description Quantity Date Captured [...]
[2025-03-29 18:20] LABS: Hematocrit 44.3 % (42.0-52.0); Hemoglobin 15.0 g/dL (14.0-18.0); Mean Corpuscular HGB Conc 33.9 g/dl (32-36); Mean Corpuscular Hemoglobin 32.3 pg (26-34); Mean Corpuscular Volume 95.5 fl (80-100); Platelet Count Result 178 k/mm3 (150-375); Red Blood Count 4.64 M/mm3 (4.6-6.20); White Blood Count 10.2 K/mm3 (4.5-10.0)
[2025-03-29 18:32] LABS: Alanine Aminotransferase 24 U/L (6-50); Albumin Level 4.5 g/dL (3.5-5.1); Alkaline Phosphatase 81 U/L (38-126); Anion Gap 7 mmol/L (4-12); Aspartate Amino Transferase 65 U/L (17-59); Bilirubin,Total 0.4 mg/dL (0.2-1.3); Blood Urea Nitrogen 14 mg/dL (9-20); Calcium 9.9 mg/dL (8.4-10.2); Carbon Dioxide 27 mmol/L (22-30); Chloride 104 mmol/L (98-107); Cholesterol 209 mg/dL (0-200); Estimated Glomerular Filt Rate > 60; Glucose 101 mg/dL (65-110); HDL Direct 37 mg/dL; Potassium 4.5 mmol/L (3.4-5.0); Sodium 138 mmol/L (137-145); Total Protein 7.8 g/dL (6.3-8.2); Triglycerides 170 mg/dL (<150)
[2025-03-29 19:08] LABS: Prostate Specific Antigen 0.6 ng/mL (< OR = 4.0)
== END 2025-03-29 14:36 | disposition home or self-care (01) ==
LOC: ANHBWCLAB 14:36
PROVIDERS: PCP Nurse Practitioner Adult Health; Visit Provider Nurse Practitioner Adult Health
DX: Z13.9 Encounter for screening, unspecified (principal); Z12.5 Encounter for screening for malignant neoplasm of prostate
CPT/HCPCS: 36415; 80053; 80061; 84153; 85027; G0103

== ENCOUNTER 2025-04-03 07:14 | Outpatient (CLI) | payer OTHER, SELFPAY ==
--- OUTSIDE RECORDS SUMMARY | 2025-04-03 07:16 | XMS_ITS | Clinical Summary ---
Author Organization [facility] Address [facility] [place] [address] Care Team Providers Care Mechanic Insulator Name Role Phone Unavailable Primary Care Provider [...] Overview: Added automatically from request for surgery [id number] Family History Medical History Relation Comments Diabetes [...] 190.5 cm (6' 3) 07/27/2019 4:15 PM GEOSPATIAL SPECIALIST Body Mass Index 26.25 07/27/2019 4:15 PM GEOSPATIAL SPECIALIST Plan of Treatment Health Maintenance Due Date [...] patient's age to complete this topic Insurance [facility] Advance Directives * Full Code (Latest Code Status on File) Date Activated Date Inactivated Comments 05/13/2019 10:46 AM 05/14/2019 6:07 PM
--- OUTSIDE RECORDS SUMMARY | 2025-04-03 07:16 | XMS_ITS | Encounter Summary ---
Author Organization [facility] Address [address] [place] [address] Care Team Providers Care Pipe Fitter Name Role Phone Letty Ennis STORE DELI MANAGER Primary Care Provider Rocio Mg STORE DELI MANAGER Primary Care Provider Marvel ailable Reason for Visit * Reason Onset Date Comments Hospital Follow Up 05/15/2019 Encounter Details Date Type Department Care Team (Late st Contact Info) Description 05/15/2019 Hospital Follow-up Call [facility] Med/Surg [address] [place] [address] Ashtyn Fletcher RN Hospital Follow [...] on filedocumented in this encounter Care Teams Pipe Fitter Relationship Specialty Start Date End Date Letty Ennis NP PCP - General Nurse Practitioner Family 05/12/19 05/10/20 Rocio Thorne NP PCP - General NURSE PRACTITIONER 05/11/20 10/07/21 documented as of this encounter
--- OUTSIDE RECORDS SUMMARY | 2025-04-03 07:17 | XMS_ITS | Continuity of Care Document ---
Author Organization [facility] Address [address] [address] Phone Care Team Providers Care Jinrikisha Driver Name Role Phone Garcia Menchaca MD Unavailable Unavailable Advance Directives Directive Yes / No Effective Date File Name No Information Encounters Encounter Description Practice Location Reason(s) For Visit Diagnoses Date Provider Providers Copied on Encounter [facility]3], [address] [address], [place], [place], [id number], [place] tel:[phone] [facility]3] ([place]) No Information Nikolai Zelaya. [address], [id number], [place]. tel:[phone] Family History Family Member Type Diagnosis Age At Onset No Information Payers Payer name Insurance type Covered green party ID Authoriza tion(s) [facility] [id number] Social History Type Description Quantity Date Captured [...]
[2025-04-07 15:09] LABS: Free Testosterone (Direct) 12.2 pg/mL (7.2-24.0)
== END 2025-04-03 07:15 | disposition home or self-care (01) ==
PROVIDERS: PCP Nurse Practitioner Adult Health; Visit Provider Nurse Practitioner Adult Health
DX: R53.83 Other fatigue (principal)
CPT/HCPCS: 84402